=== PATIENT | male | born 1965 | race Caucasian/White ===

== ENCOUNTER → 2017-06-26 | Outpatient (CLI) | payer MEDICARE ==
[2017-06-26 16:17] LABS: Blood Urea Nitrogen 13 mg/dL (9-20)
--- NOTE | 2017-06-26 18:55 | MR ---
EXAMINATION TYPE: MR liver wo/w con DATE OF EXAM: 06/26/2017 COMPARISON: NONE HISTORY: Abnormal Liver Labs, CONTRAST: Standard multiplanar, multisequence MRI departmental protocol utilizing 7.5 mL intravenous Gadavist g adolinium contrast. FINDINGS: There is heterogeneous enhancement of the liver. T2 imaging there is heterogeneous signal intensity o f the liver. There are at least 4 less than 5 mm lesions within the liver which are compatible tiny simple cysts. No suspicious masses are noted. There are bilateral simple appearing renal cysts. Pancreas has a normal appearance. No gallstones. Mild thickening of left adrenal gland is nonspecific. Right adrenal gland has a normal appearance. Aorta of normal caliber. Mesenteric vasculature, hepatic veins, and portal veins are patent. Spleen has a homogeneous signal intensity and measures 13 cm at the upper limits of normal. No adenopathy. No free fluid. IMPRESSION: 1. Heterogeneous pattern of liver is nonspecific but most commonly seen with hepatitis or hepatocellu lar disease correlate with liver function studies. 2. Nonspecific left adrenal gland thickening correlate for hyperplasia. 3. Simple appearing bilateral renal cysts
== END | disposition home or self-care (01) ==
LOC: RADMRIMAIN 15:42
PROVIDERS: ATTEND Internal Medicine Gastroenterology
DX: E27.8 Other specified disorders of adrenal gland (principal); N28.1 Cyst of kidney, acquired
CPT/HCPCS: 82565; 84520; 74183; A9581

== ENCOUNTER → 2017-11-28 | Outpatient (CLI) | payer MEDICARE ==
--- NOTE | 2017-11-29 21:50 | MR ---
EXAMINATION TYPE: MR knee RT wo con DATE OF EXAM: 11/29/2017 COMPARISON: NONE HISTORY: 52-year-old male with right knee pain x 2 weeks, no trauma TECHNIQUE: Multiplanar, multisequence imaging of the right knee is performed without IV contrast. FINDINGS: The ACL, PCL, and MCL are intact. There is inhomogeneous signal at the femoral attachment site of the LCL proper. Otherwise, LCL complex remains intact. Lateral meniscus is intact and overall lateral compartment articular cartilage volume is maintained. There is a tiny obliquely oriented area of increased signal at the junction of the posterior horn and body of the medial meniscus that extends to contact the tibial surface, refer to coronal PD FS image 20 and sagittal PD FS image 8. Maintained medial compartment articular cartilage volume. There is anterior subcutaneous soft tissue swelling and more focal increased swelling and inflammatio n at the middle third superficial insertional quadriceps tendon fibers. There is a small partial tear here measuring 1.1 and 0.7 cm wide involving less than half the tendon thickness. This shows heterog eneous T2 signal and low to intermediate T1 signal. Patellofemoral compartment articular cartilage volume is maintained. Small knee joint effusion. Small 1.3 x 2.9 cm Cross cyst. Normal popliteal artery anatomy and muscle bulk. No suspicious bone marrow replacement. IMPRESSION: 1. Tiny oblique tear at the junction of the posterior horn and body of the medial meniscus. 2. Prominent anterior soft tissue swelling with suggestion of a partial tear involving the superficia l fibers of the middle third insertional quadriceps tendon. This measures 1 cm long by 7 mm wide and involves less than half the tendon thickness. However, if there is no history of injury or event that would explain such a finding, gouty involvement would be an alternative consideration. 3. Low grade versus chronic sprain at the femoral attachment of the LCL proper. 4. Small knee joint effusion and small Cross's cyst.
== END | disposition home or self-care (01) ==
LOC: RADMRIMAIN 14:45
PROVIDERS: ATTEND Orthopaedic Surgery
DX: S83.241A Other tear of medial meniscus, current injury, right knee, initial encounter (principal); M71.21 Synovial cyst of popliteal space [Baker], right knee; M79.89 Other specified soft tissue disorders

== ENCOUNTER → 2018-08-16 | Outpatient (CLI) | payer MEDICARE ==
--- NOTE | 2018-08-16 15:57 | XR ---
EXAMINATION TYPE: XR abdomen 1V DATE OF EXAM: 08/16/2018 3:54 PM CLINICAL HISTORY: Abdominal pain and nausea for 3 days. TECHNIQUE: Two Upright KUB images of the abdomen are obtained. COMPARISON: CT abdomen and pelvis 2011. FINDINGS: Scattered gas is seen in non-distended small bowel loops. Gas and fecal material is seen in non-distended colon. There is no visceromegaly, pneumoperitoneum, or abnormal calcification apprecia zoila. The lung bases are clear and the osseous structures are intact. IMPRESSION: Overall nonobstructive bowel gas pattern.
== END | disposition home or self-care (01) ==
LOC: RADXRMAIN 15:39
PROVIDERS: ATTEND Family Medicine
DX: R10.9 Unspecified abdominal pain (principal)
CPT/HCPCS: 74018

== ENCOUNTER → 2020-05-25 | Outpatient (CLI) | payer MEDICARE ==
--- NOTE | 2020-05-26 01:05 | MR ---
EXAMINATION TYPE: MR shoulder RT wo con DATE OF EXAM: 05/25/2020 COMPARISON: None HISTORY: Right shoulder pain, injury 3 mos ago Multiplanar multiecho imaging of the right shoulder was performed without contrast. The subscapularis tendon is intact. Biceps tendon is intact. There is small amount of fluid around th e biceps tendon. There is a small subdeltoid effusion. There is increased signal in the supraspinatus tendon near the attachment on the greater tuberosity of the humerus. There is full-thickness defect. No retraction of the tendon. I see no bony destructive process. IMPRESSION: Small shoulder joint effusion and subdeltoid effusion consistent with nonspecific synovitis. Small fu ll-thickness rotator cuff tear. No fracture.
== END | disposition home or self-care (01) ==
LOC: RADMRIMAIN 19:15
PROVIDERS: ATTEND Orthopaedic Surgery
DX: M75.121 Complete rotator cuff tear or rupture of right shoulder, not specified as traumatic (principal); M25.411 Effusion, right shoulder

== ENCOUNTER → 2020-06-15 | Outpatient (CLI) | payer MEDICARE ==
[2020-06-15 11:59] LABS: Basophils % (A) 1 %; Eosinophils % (A) 1 %; HCT 43.1 % (39.0-53.0); HGB 14.2 gm/dL (13.0-17.5); Lymphocytes # (A) 1.2 k/uL (1.0-4.8); Lymphocytes % (A) 40 %; MCH 30.4 pg (25.0-35.0); Mean Platelet Volume 8.6; Monocytes # (A) 0.2 k/uL (0-1.0); Monocytes % (A) 8 %; Neutrophils # (A) 1.4 k/uL (1.3-7.7); Neutrophils % (A) 48 %; RBC 4.68 m/uL (4.30-5.90); RDW 13.8 % (11.5-15.5); WBC 2.9 k/uL (3.8-10.6)
[2020-06-15 12:02] LABS: Potassium 4.7 mmol/L (3.5-5.1)
[2020-06-15 12:05] LABS: Platelet Count 87 k/uL (150-450)
== END | disposition home or self-care (01) ==
LOC: LABPAT 10:07
PROVIDERS: ATTEND Orthopaedic Surgery
DX: Z01.818 Encounter for other preprocedural examination (principal); M75.41 Impingement syndrome of right shoulder
CPT/HCPCS: 36415; 80051; 85025; 93005

== ENCOUNTER → 2020-06-21 | Outpatient (CLI) | payer MEDICARE ==
[2020-06-21 10:20] LABS: Basophils % (A) 1 %; Eosinophils # (A) 0.1 k/uL (0-0.7); Eosinophils % (A) 2 %; HCT 42.7 % (39.0-53.0); HGB 14.9 gm/dL (13.0-17.5); Lymphocytes # (A) 1.1 k/uL (1.0-4.8); Lymphocytes % (A) 38 %; MCH 31.4 pg (25.0-35.0); MCV 89.7 fL (80.0-100.0); Mean Platelet Volume 8.4; Monocytes # (A) 0.2 k/uL (0-1.0); Monocytes % (A) 8 %; Neutrophils # (A) 1.3 k/uL (1.3-7.7); Neutrophils % (A) 48 %; RBC 4.76 m/uL (4.30-5.90); WBC 2.8 k/uL (3.8-10.6)
[2020-06-21 10:25] LABS: Platelet Count 90 k/uL (150-450)
== END | disposition home or self-care (01) ==
LOC: LABPAT 09:07
PROVIDERS: ATTEND Orthopaedic Surgery
DX: Z01.818 Encounter for other preprocedural examination (principal)
CPT/HCPCS: 36415; 85025

== ENCOUNTER 2020-06-26 11:14 | Day surgery (SDC) | payer MEDICARE ==
[2020-06-20 15:18] VITALS: BMI 25.7
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
[~2020-06-26 11:14] MED LIST: CLINDAMYCIN 900 MG in DEXTROSE 5% IN WATER 50 ML IVPB PRN; DEXAMETHASONE SOD PHOSPHATE 4 MG/ML 1 ML VIAL IV ONE; LACTATED RINGERS 1,000 ML IV SCH; LIDOCAINE 1% (10MG/ML) FOR IV START INTRADERMA PRN; MIDAZOLAM 2 MG/2 ML VIAL IV PRN; ONDANSETRON 4 MG/2 ML VIAL IVP ONE; Pre Op ABX Message 1 EACH MISC MISCELLANE ONE; fentaNYL (PF) 50 MCG/ML 2 ML AMP IV PRN
[2020-06-26] MEDS ORDERED: MIDAZOLAM 2 MG/2 ML VIAL IV ONE (12:32)
[2020-06-26] MEDS ORDERED: ROPIVACAINE 5 MG/ML 30 ML VIAL ONE (13:18)
[2020-06-26] MEDS ORDERED: NEOSTIGMINE 1 MG/ML 10 ML VIAL ONE (13:18)
[2020-06-26] MEDS ORDERED: MIDAZOLAM 2 MG/2 ML VIAL ONE (13:18)
[2020-06-26] MEDS ORDERED: fentaNYL (PF) 50 MCG/ML 2 ML AMP ONE (13:18)
[2020-06-26] MEDS ORDERED: ePHEDrine SULFATE/0.9% NACL/PF 50 MG/5 ML SYRINGE IV ONE (13:18)
[2020-06-26] MEDS ORDERED: PROPOFOL 10 MG/ML 20 ML VIAL IV ONE (13:18)
[2020-06-26] MEDS ORDERED: GLYCOPYRROLATE 0.2 MG/ML 2 ML VIAL ONE (13:18)
[2020-06-26] MEDS ORDERED: DEXAMETHASONE SOD PHOSPHATE 4 MG/ML 1 ML VIAL ONE (13:18)
[2020-06-26] MEDS ORDERED: LIDOCAINE 1% INJ 10MG/ML (20 ML MDV) ONE (13:18)
[2020-06-26] MEDS ORDERED: ROCURONIUM 10 MG/ML (10 ML VIAL) IV ONE (13:18)
[2020-06-26] MEDS ORDERED: SUCCINYLCHOLINE CHLORIDE 100 MG/5 ML SYR IV ONE (13:18)
[2020-06-26] MEDS ORDERED: EPINEPHrine (PF) 1 ML in SODIUM CHLORIDE 0.9% IRRIGATIO 3,000 ML IRRIGATION ONE ×8 (13:23)
[2020-06-26] MEDS ORDERED: LACTATED RINGERS 1,000 ML IV ONE (14:23)
--- NOTE | 2020-06-26 14:30 | P.ANPRN ---
Procedure Note - Anesthesia - Nerve Block Performed Right Interscalene Single Time Out Performed: Yes Date of Procedure: 06/26/20 Procedure Start Time: 12:32 Procedure Stop Time: 12:39 Location of Patient: PreOp Indication: Acute Post-Operative Pain, Requested by Surgeon Sedation Type: Sedate with meaningful contact maintained Preparation: Sterile Prep Position: Supine Needle Types: Pajunk Needle Gauge: 21 Ultrasound used to visualize needle placement: Yes Ultrasound used to observe medication spread: Yes Blood Aspirated: No Pain Paresthesia on Injection Noted: No Resistance on Injection: Normal Image Stored and Saved: Yes Events: Uneventful and Well Tolerated (ropi .5% 20cc plus dexamethasone 4mg)
--- NOTE | 2020-06-26 14:30 | P.OP ---
Date of Procedure: 06/26/20 Preoperative Diagnosis: Right shoulder synovitis/impingement/acromioclavicular joint arthritis Postoperative Diagnosis: Same Procedure(s) Performed: Right shoulder arthroscopic synovectomy/subacromial decompression/distal clavicular resection Anesthesia: cindy GOTTI Surgeon: Mahad Fernandez Assistant Plant Controller #1: Edgar Crane Estimated Blood Loss (ml): 10 Pathology: none sent Condition: stable Disposition: PACU Indications for Procedure: The patient's a 54-year-old male who presents with persistent/progressive right shoulder pain despite previous conservative measures. A discussion of the risks and benefits of operative intervention versus continued conservative measures was made with patient. He opted to proceed with surgery. Operative risks to include infection, neurovascular injury, development of blood clots, possible incomplete resolution of symptoms, possible worsening symptoms and need for subsequent procedures was discussed. Informed consent was obtained. Operative Findings: As below Description of Procedure: The patient was brought to the operating room, and after induction of general anesthesia was placed in a beachchair position. A preoperative interscalene block was placed for postoperative analgesia. I examined the right shoulder. There was no gross block to passive motion or gross glenohumeral instability. The right upper extremity was prepped and draped in normal fashion. The bony outlines the acromion, distal clavicle, and coracoid process were outlined with a skin marker. The glenohumeral joint was inflated with 50 mL of saline utilizing a spinal needle from posterior approach. A posterior portal was made through a 5 mm skin incision 1 cm medial and inferior to the posterior lateral border time. A blunt trocar was used to easily into the joint. Diagnostic arthroscopy was performed. An anterior portal was made just lateral to the coracoid process entering the joint above the subscapularis tendon. The subscapularis tendon appeared to be intact. Anterior labrum was intact. There was significant synovitis of the rotator interval that was debrided with a motorized shaver. The inferior recess was inspected. The posterior labrum was intact. The rotator cuff appeared to be intact on the articular surface. The biceps and its anchor were intact as well. The arthroscope was placed into the subacromial space. A lateral portal was made 2 centimeters inferior to the anterior lateral border of the acromion. The soft tissue on the undersurface of the acromion was debrided with a motorized shaver and electrocautery clearly defining the anterior medial and lateral borders as well as the distal clavicle. An anterior inferior acromioplasty was performed with a motorized yaa starting anterolateral, then extending this posteriorly, then extending this medially. I converted to a flat acromion and this was verified in the posterior and lateral viewing portals. The distal clavicle appeared to impinge on the subacromial space and the distal 4 mm was resected with a motorized bur. Significant bursal thickening was noted and this was debrided with a motorized shaver. The rotator cuff appeared intact on the articular surface. The arthroscope was then removed. The portals were closed with simple 3-0 nylon sutures. A sterile dressing was applied in addition to a sling. The patient was then awoken from general anesthesia and transferred to recovery room in good condition. Blood loss was estimated at 10 mL. No complications were incurred. Sponge and needle counts were correct in the case. Steve GALAN assisted and the major components of the case to include arm positioning portion, and bursectomy.
[2020-06-26 14:43] VITALS: TEMP 97.1
[2020-06-26 15:35] VITALS: RESP 18
[2020-06-26 15:58] VITALS: BP 126/79; PULSE 61
== END 2020-06-26 16:12 | disposition home or self-care (01) ==
LOC: OR 11:14
PROVIDERS: ATTEND Orthopaedic Surgery
DX: S43.401A Unspecified sprain of right shoulder joint, initial encounter (principal); M25.811 Other specified joint disorders, right shoulder; M19.011 Primary osteoarthritis, right shoulder; I10 Essential (primary) hypertension; Z88.0 Allergy status to penicillin; Z98.890 Other specified postprocedural states; Z79.899 Other long term (current) drug therapy; Z88.1 Allergy status to other antibiotic agents; Z80.9 Family history of malignant neoplasm, unspecified; V19.9XXA Pedal cyclist (driver) (passenger) injured in unspecified traffic accident, initial encounter
CPT/HCPCS: 64415; 76942; 29824; 29826; J2250; J1100; J2710; J2405; J0171; J2001; J3010; J2795; J0330; J2704

== ENCOUNTER → 2021-02-12 | Outpatient (CLI) | payer MEDICARE ==
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
== END | disposition home or self-care (01) ==
LOC: RADXRMAIN 09:11
PROVIDERS: ATTEND Family Medicine
DX: M79.89 Other specified soft tissue disorders (principal); W19.XXXA Unspecified fall, initial encounter
CPT/HCPCS: 70110; 70150

== ENCOUNTER → 2022-03-31 | Outpatient (CLI) | payer MEDICARE ==
--- NOTE | 2022-03-31 15:45 | NM ---
EXAMINATION TYPE: NM bone scan whole body DATE OF EXAM: 03/31/2022 COMPARISON: NONE CLINICAL INDICATION:Male, 56 years old with history of M79.10 MYALGIA, Delayed whole-body scanning was performed following the injection of 21.8 mCi Tc 99m MDP. Images acq uired 3 hours post injection. FINDINGS: No suspicious radiotracer uptake. Mild degeneration uptake within the acromioclavicular joints bilate rally. IMPRESSION: No suspicious uptake, mild osteoarthritic changes in the acromion clavicular joints.
== END | disposition home or self-care (01) ==
LOC: RADNMMAIN 10:37
PROVIDERS: ATTEND Family Medicine
DX: M19.011 Primary osteoarthritis, right shoulder (principal)
CPT/HCPCS: 78306; A9503

== ENCOUNTER 2023-09-01 08:59 | Day surgery (SDC) | payer MEDICARE ==
[2023-08-28 15:31] VITALS: BMI 25.7
[~2023-09-01 08:59] MED LIST changes: -CLINDAMYCIN 900 MG in DEXTROSE 5% IN WATER 50 ML IVPB PRN; -DEXAMETHASONE SOD PHOSPHATE 4 MG/ML 1 ML VIAL IV ONE; -LACTATED RINGERS 1,000 ML IV SCH; -MIDAZOLAM 2 MG/2 ML VIAL IV PRN; -ONDANSETRON 4 MG/2 ML VIAL IVP ONE; -Pre Op ABX Message 1 EACH MISC MISCELLANE ONE; -fentaNYL (PF) 50 MCG/ML 2 ML AMP IV PRN
[2023-09-01] MEDS: LACTATED RINGERS 1,000 ML IV SCH (09:22)
[2023-09-01 09:59] VITALS: TEMP 97
[2023-09-01] MEDS ORDERED: PROPOFOL 10 MG/ML 20 ML VIAL IV ONE (10:17)
--- NOTE | 2023-09-01 10:31 | P.PCN ---
Date of Procedure: 09/01/23 Procedure(s) Performed: BRIEF HISTORY: Patient is a 57-year-old pleasant white male scheduled for an elective colonoscopy as a part of prior history of colon polyps. PROCEDURE PERFORMED: Colonoscopy. PREOPERATIVE DIAGNOSIS: History of colon polyps. IV sedation per Anesthesia. PROCEDURE: After informed consent was obtained, the patient, was brought into the endoscopy unit. IV sedation was administered by Anesthesia under continuous monitoring. Digital rectal examination was normal. Initially the Olympus CF-160 flexible video colonoscope was then inserted in the rectum, gradually advanced into the cecum without any difficulty. Careful examination was performed as the scope was gradually being withdrawn. Ileocecal valve and the appendiceal orifice were visualized and appeared normal. Prep was excellent. Mucosa of the cecum, ascending colon, transverse colon, descending colon, sigmoid colon, and rectum appeared normal. Retroflexion was performed in the rectum and no lesions were seen. The patient tolerated the procedure well. IMPRESSION: Normal-appearing colon from rectum to cecum with no evidence of colorectal neoplasia . RECOMMENDATIONS: Findings of this examination were discussed with the patient as his family. He was advised to have a repeat screening colonoscopy in 10 year s..
[2023-09-01 10:37] VITALS: PULSE 56
[2023-09-01 11:14] VITALS: BP 117/61; RESP 16
== END 2023-09-01 11:14 | disposition home or self-care (01) ==
LOC: ORWHC2ENDO 08:59
PROVIDERS: ATTEND Internal Medicine Gastroenterology
DX: Z12.11 Encounter for screening for malignant neoplasm of colon (principal); I10 Essential (primary) hypertension; K21.9 Gastro-esophageal reflux disease without esophagitis; Z86.2 Personal history of diseases of the blood and blood-forming organs and certain disorders involving the immune mechanism; Z79.899 Other long term (current) drug therapy; Z88.1 Allergy status to other antibiotic agents; Z86.010 Personal history of colon polyps
CPT/HCPCS: J2704; G0105; 45378